=== PATIENT | female | born 1995 | race Asian ===

== ENCOUNTER 2020-04-08 23:21 | Emergency (ER) | payer OTHER ==
[~2020-04-08] VITALS: Ht 154.9 cm; Wt 59.0 kg
[2020-04-08 23:27] VITALS: Ht 154.9 cm; Wt 59.0 kg
[2020-04-09 06:45] VITALS: BP 110/78
== END 2020-04-09 06:45 | disposition home or self-care (01) ==
LOC: ED 23:21
DX: S20.312A Abrasion of left front wall of thorax, initial encounter (principal); S80.211A Abrasion, right knee, initial encounter; M25.512 Pain in left shoulder; V49.09XA Driver injured in collision with other motor vehicles in nontraffic accident, initial encounter; Y93.I9 Activity, other involving external motion; Y92.413 State road as the place of occurrence of the external cause; Y99.8 Other external cause status